=== PATIENT | female | born 1970 | race Caucasian/White ===

== ENCOUNTER 2019-02-15 00:37 | Emergency (ER) | payer OTHER ==
--- NOTE | 2019-02-15 00:53 | PHYS DOC ---
Past History Past Medical History: Hypothyroid Additional Past Medical Histor: insomnia, herniated disc at L5/S1 Past Surgical History: Hysterectomy Additional Past Surgical Histo: breast implants Adult General Chief Complaint Chief Complaint: abdominal pain HPI HPI Patient is a 48 year old female who presents with complaint of abdominal pain and vomiting. Patient states that her symptoms started approximately 4-5 hours prior to arrival. She states that her symptoms started out as discomfort in the right upper quadrant. This has progressed to severe sharp colicky pain which she currently rates as 10 out of 10. Has associated nausea. No diarrhea or fever. States that the pain radiates towards her back. Denies history of similar symptoms. Review of Systems Review of Systems Constitutional: Denies fever or chills [] Eyes: Denies change in visual acuity, redness, or eye pain [] HENT: Denies nasal congestion or sore throat [] Respiratory: Denies cough or shortness of breath [] Cardiovascular: Denies chest pain or edema[] GI: Abdominal pain, nausea, vomiting[] : Denies dysuria or hematuria [] Musculoskeletal: Denies back pain or joint pain [] Integument: Denies rash or skin lesions [] Neurologic: Denies headache, focal weakness or sensory changes [] All other systems were reviewed and found to be within normal limits, except as documented in this note. Current Medications Current Medications Current Medications Medications (Trade) Dose Ordered Sig/Margi Start Time Stop Time Status Last Admin Dose Admin Famotidine (Pepcid Vial) 20 mg 1X ONCE 02/15/19 01:00 02/15/19 01:01 UNV Fentanyl Citrate (Fentanyl 2ml Vial) 50 mcg PRN Q15MIN PRN 02/15/19 01:00 02/16/19 00:59 UNV Ondansetron HCl (Zofran) 4 mg 1X ONCE 02/15/19 01:00 02/15/19 01:01 UNV Sodium Chloride 1,000 ml @ 1,000 mls/hr Q1H 02/15/19 00:50 02/15/19 01:49 UNV Allergies Allergies Allergies Coded Allergies Type Severity Reaction Last Updated Verified naproxen Allergy Unknown 02/15/19 Yes povidone-iodine Allergy Unknown 02/15/19 Yes soap Allergy Unknown 02/15/19 Yes Physical Exam Physical Exam Constitutional: Alert, afebrile, appears in severe discomfort. [] HENT: Normocephalic, atraumatic, bilateral external ears normal, oropharynx moist, no oral exudates, nose normal. [] Eyes: PERRLA, EOMI, conjunctiva normal, no discharge. [] Neck: Normal range of motion, no tenderness, supple, no stridor. [] Cardiovascular:Heart rate regular rhythm, no murmur [] Lungs & Thorax: Bilateral breath sounds clear to auscultation [] Abdomen: Bowel sounds normal, soft, positive Lovell sign, no masses, no pulsatile masses. [] Skin: Warm, dry, no erythema, no rash. [] Back: No tenderness, no CVA tenderness. [] Extremities: No tenderness, no cyanosis, no clubbing, ROM intact, no edema. [] Neurologic: Alert and oriented X 3, normal motor function, normal sensory function, no focal deficits noted. [] Current Patient Data Vital Signs Temperature 97.3�F, pulse 76, blood pressure 115/76, respirations 22, pulse oximetry 100% on room air Lab Results CBC, CMP, lipase, and UA reviewed, notable lab values: White blood cell count 12.8, blood glucose 125, potassium 3.3 EKG EKG Interpreted by me: Heart rate 73, sinus rhythm, normal intervals, normal axis, no acute ST/T-wave abnormalities present[] Radiology/Procedures Radiology/Procedures CT of the abdomen and pelvis with IV contrast interpreted by Dr. Gallo, radiologist: Findings consistent with acute cholecystitis[] Course & Med Decision Making Course & Med Decision Making Pertinent Labs and Imaging studies reviewed. (See chart for details) Patient was started on IV fluids. Given a total of 200 �g of IV fentanyl, 4 mg of IV Zofran, and administered an additional 1 mg of IV Dilaudid. CT imaging confirms acute cholecystitis. [facility] does not have general surgery on-call. The patient will need transfer to a facility for general surgery consultation and expectant laparoscopic cholecystectomy. The patient thus will be transferred to [facility]. I spoke with Dr. Franco of general surgery who will agree to consult on patient. I also spoke with Dr. Leary who will accept patient for transfer. The patient will be transferred by ground EMS to [facility]. Spoke with patient regarding plan of care and in agreement at time of disposition. Dragon Disclaimer Dragon Disclaimer This electronic medical record was generated, in whole or in part, using a voice recognition dictation system. Departure Departure: Impression: Primary Impression: Acute cholecystitis Disposition: XFER SHT-TRM HOSP Condition: STABLE Referrals: RADAMES CENTENO MD (PCP) SAMIA WALTER MD Feb 15, 2019 00:53
[2019-02-15] MEDS ORDERED: ONDANSETRON PF 4 MG/2 ML VIAL. IV ONE (01:00)
[2019-02-15] MEDS ORDERED: FAMOTIDINE 20 MG/2 ML VIAL IVP ONE (01:00)
[2019-02-15] MEDS ORDERED: IV NORMAL SALINE 1,000ML 1,000 ML IV SCH (01:00)
[2019-02-15] MEDS ORDERED: IOHEXOL 300 MG/ML 75 ML VIAL. ONE (01:48)
[2019-02-15] MEDS ORDERED: HYDROmorphone PF 2 MG/ML VIAL ONE (03:09)
[2019-02-15 04:13] LABS: ALBUMIN/GLOBULIN RATIO 1.3 (1.0-1.7); CALCIUM 9.5 mg/dL (8.5-10.1); CREATININE 0.7 mg/dL (0.6-1.0); GFR 89.3; POTASSIUM 3.3 mmol/L (3.5-5.1); TOTAL BILIRUBIN 0.4 mg/dL (0.2-1.0); TOTAL PROTEIN 7.1 g/dL (6.4-8.2)
[2019-02-15 04:14] LABS: BASO # 0.1 x10^3/uL (0.0-0.2); BASO % 1 % (0-3); EOS # 0.1 x10^3/uL (0.0-0.7); EOS % 1 % (0-3); HEMATOCRIT 43.8 % (36.0-47.0); HEMOGLOBIN 14.6 g/dL (12.0-15.5); LYMPH # 1.6 x10^3/uL (1.0-4.8); LYMPH % 12 % (24-48); MEAN CORPUSCULAR HEMOGLOBIN 31 pg (25-35); MEAN CORPUSCULAR HGB CONC 33 g/dL (31-37); MEAN CORPUSCULAR VOLUME 94 fL (79-100); MONO # 0.9 x10^3/uL (0.0-1.1); MONO % 7 % (0-9); NEUT # 10.3 x10^3uL (1.8-7.7); NEUT % 80 % (31-73); PLATELET COUNT 230 x10^3/uL (140-400); RED BLOOD COUNT 4.64 x10^6/uL (3.50-5.40); RED CELL DISTRIBUTION WIDTH 12.3 % (11.5-14.5); WHITE BLOOD COUNT 12.8 x10^3/uL (4.0-11.0)
[2019-02-15] MEDS ORDERED: CONTRAST GIVEN MC PRN (04:30)
[2019-02-15] MEDS ORDERED: IOHEXOL 300 MG/ML 75 ML VIAL. IV ONE (04:30)
[2019-02-15 04:40] LABS: BACTERIA,URINE 0 /HPF (0-FEW); BILIRUBIN,URINE NEG (NEG); CLARITY,URINE CLEAR; COLOR,URINE YELLOW; GLUCOSE,URINE NEG (NEG); NITRITE,URINE NEG (NEG); RBC,URINE OCC /HPF (0-2); UROBILINOGEN,URINE 0.2 mg/dL (0.2 mg/dL); WBC,URINE OCC /HPF (0-4)
[2019-02-15 04:41] LABS: SQUAMOUS EPITHELIAL CELL,UR MANY /LPF
--- NOTE | 2019-02-15 05:10 | RAD ---
CT scan of the abdomen and pelvis with contrast 02/15/2019 CLINICAL HISTORY: Right upper quadrant abdominal pain. TECHNIQUE: After the intravenous administration of 75 cc of Omnipaque 300 only, contiguous, 5 mm axial sections were obtained through the abdomen and pelvis. One or more of the following individualized dose reduction techniques were utilized for this study: 1. Automated exposure control. 2. Adjustment of the mA and/or kV according to patient size. 3. Use of iterative reconstruction technique. FINDINGS: Images through the lung bases demonstrate minimal dependent subsegmental atelectasis bilaterally. The liver, spleen, pancreas, adrenal glands and kidneys are within normal limits. The abdominal aorta tapers normally. No free air is seen. There is no evidence of bowel obstruction. The appendix is not visualized. No inflammatory changes are seen surrounding the cecum. The gallbladder is distended. Multiple gallstones are seen within the gallbladder. A 1.7 cm gallstone is seen within the neck of the gallbladder. Mild gallbladder wall thickening is seen. A small amount of pericholecystic fluid is noted. These findings are consistent with acute cholecystitis. No intra or extrahepatic biliary dilatation is noted. Images through the pelvis demonstrate the urinary bladder distended with urine. Calcifications are seen within the pelvis consistent with phleboliths. No free fluid is seen. Degenerative changes are seen involving lower thoracic and throughout the lumbar spine and both hips. IMPRESSION: Findings consistent with acute cholecystitis. Electronically signed by: Derek Gallo MD (02/15/2019 5:07 AM) [facility]
--- NOTE | 2019-02-16 11:11 | EKG ---
[address] [address] Test Date: 2019-02-15 Test Time: 01:40:58 Pat Name: KRISTIE OLVERA Department: Room: Gender: F Environmental Health Physician: PATRICIA : 1970 Requested By: SAMIA WALTER Order Number: [id number] Reading MD: Measurements Intervals [place] Rate: 73 P: 59 CA: 184 QRS: 65 QRSD: 82 T: 56 QT: 370 QTc: 411 Interpretive Statements SINUS ARRHYTHMIA OTHERWISE NORMAL ECG RI6.01 No previous ECG available for comparison
== END 2019-02-15 04:32 | disposition short-term general hospital (02) ==
LOC: ER 00:37
DX: K81.0 Acute cholecystitis (principal); E03.9 Hypothyroidism, unspecified; Z90.710 Acquired absence of both cervix and uterus; Z88.8 Allergy status to other drugs, medicaments and biological substances; Z91.048 Other nonmedicinal substance allergy status
CPT/HCPCS: 36415; 74177; 80053; 81001; 83690; 85025; 99285; Q9967

== ENCOUNTER 2020-06-29 20:07 | Emergency (ER) | payer OTHER ==
[~2020-06-29] VITALS: Ht 167.6 cm; Wt 90.0 kg
--- NOTE | 2020-06-29 20:15 | PHYS DOC ---
Past History Past Medical History: Hypothyroid Additional Past Medical Histor: insomnia, herniated disc at L5/S1 Past Surgical History: Hysterectomy Additional Past Surgical Histo: breast implants General Adult EDM: Chief Complaint: NAUSEA/VOMITING/DIARRHEA HPI: HPI: ".. My has COVID..He's better.. I probably got it now..." " My tested + on .. I was negative...Now I got it.. I hurt all over, have fever and chills,.. I hurt all over.. vomiting and nauseated... Probably got a little dehydrated... I did get my flu shot this season.." Patient is a 50 year old female who presents with above hx and complaints of nausea, vomiting, diarrhea, malaise, arthralgia, myalgia, fever, chills, and f atigue. Patient states the nausea now prevents her from intake of food. Patient tested positive on Wednesday of this week for Covid. Patient reportedly was negative on her first Covid test. The patient did get a flu vaccination this season. No recent travel outside [facility]. No other specific contacts other than her . No history of bad food intake. No h istory of immunosuppression. Patient follow-up with Dr. Rosario Review of Systems: Review of Systems: Constitutional: History of fever or chills Eyes: Denies change in visual acuity HENT: History of nasal congestion or sore throat Respiratory: History of cough or shortness of breath Cardiovascular: Denies chest pain or edema GI: History of abdominal pain, nausea, vomiting, and diarrhea : Denies dysuria Musculoskeletal: Complains of generalized myalgia and arthralgia Integument: Denies rash Neurologic: Denies headache, focal weakness or sensory changes Endocrine: Denies polyuria or polydipsia Lymphatic: Denies swollen glands Psychiatric: Denies depression or anxiety Family History: Family History: tested positive for Covid on 06/25 Current Medications: Current Meds: See nursing for home meds Allergies: Allergies: Allergies Coded Allergies Type Severity Reaction Last Updated Verified naproxen Allergy Unknown 02/15/19 Yes povidone-iodine Allergy Unknown 02/15/19 Yes soap Allergy Unknown 02/15/19 Yes Physical Exam: PE: Constitutional: Moderate acute distress, ill in appearance. [] HENT: Normocephalic, atraumatic, bilateral external ears normal, oropharynx dry,, injected pharynx, no oral exudates, nose swollen turbinates clear rhinorrhea. Eyes: PERRLA, EOMI, conjunctiva normal, no discharge. [] Neck: Normal range of motion, no tenderness, supple, no stridor. [] Cardiovascular: Tachycardia heart rate rhythm, no murmur [] Lungs & Thorax: Bilateral breath sounds equal at apex with scattered wheezes on auscultation [] Abdomen: Bowel sounds hyperactive, soft, no tenderness, no masses, no pulsatile masses. Old hysterectomy and gallbladder scars Skin: Warm, dry, no erythema, no rash. Poor turgor Back: No tenderness, no CVA tenderness. [] Extremities: No tenderness, no cyanosis, no clubbing, ROM intact, no edema. No cording appreciated. Neurologic: Alert and oriented X 3, moves all extremities on request, does have distal sensory, no focal deficits noted. [] Psychologic: Affect anxious, judgement normal, mood normal. [] EKG: EKG: My interpretation of EKG shows a sinus rhythm at 92 bpm. No acute morphology. Radiology/Procedures: Radiology/Procedures: [][place] [address] IMAGING REPORT Signed PATIENT: KRISTIE OLVERA ACCOUNT: [id number] : 1970 LOCATION: ER AGE: 50 SEX: F EXAM STATUS: REG ER ORD. PHYSICIAN: DIPTI QUINTEROS MD REASON: dyspnea PROCEDURE: PORTABLE CHEST 1V AP chest. HISTORY: Dyspnea AP view was taken of the chest. There are hazy bilateral infiltrates suggesting atypical or viral pneumonia. Heart is normal in size. There is no pleural effusion. IMPRESSION: 1. Bilateral hazy infiltrates. Electronically signed by: Rex Funez MD (06/29/2020 10:00 PM) [facility] DICTATED AND SIGNED BY: REX FUNEZ MD DATE: 06/29/20 2200 CC: RADAMES ROSARIO MD; DIPTI QUINTEROS MD ~MTH0 0 Heart Score: HEART Score for Chest Pain: HEART Score for Chest Pain Response (Comments) Value History Slighlty/Non-Suspicious 0 ECG Normal 0 Age >45 - < 65 1 Risk Factors 1 or 2 Risk Factors 1 Troponin < Normal Limit 0 Total 2 Risk Factors: Risk Factors: DM, Current or recent (<one month) smoker, HTN, HLP, family history of CAD, obesity. Risk Scores: Score 0 - 3: 2.5% MACE over next 6 weeks - Discharge Home Score 4 - 6: 20.3% MACE over next 6 weeks - Admit for Clinical Observation Score 7 - 10: 72.7% MACE over next 6 weeks - Early Invasive Strategies Course & Med Decision Making: Course & Med Decision Making Pertinent Labs and Imaging studies reviewed. (See chart for details) Patient to self isolate the next 10 days. Pt. to Wear a mask covering her nose and mouth at all times when she is outside her home. Patient use MDI 2 puffs 4 times a day. Patient take Tylenol and ibuprofen as needed for discomfort. May take Zofran 8 mg up to 4 times a day for nausea and vomiting. Patient take Zithromax 250 a day for next 5 days. Eliquis 2.5 twice a day. The patient push fluids. Patient consider self as Covid positive due to her exposure and symptoms. Return if any concerns. Follow-up primary care. Pt. ambulatory with out problems at discharge. Reports marked improvement of symptoms. Impression: 1. Viral Syndrome-history of direct exposure COVID- 2. Nausea vomiting diarrhea 3. Dehydration 4. Mild elevation D-dimer 0.81 5. Hypomagnesium 1.5 6. Elevated AST and ALT 80/78 7. Elevated CRP 48.7 8. Bilateral Atypical Pneumonia [] Dragon Disclaimer: Dragon Disclaimer: This electronic medical record was generated, in whole or in part, using a voice recognition dictation system. Departure Departure: Referrals: RADAMES ROSARIO MD (PCP) Scripts Apixaban (ELIQUIS) 2.5 Mg Tablet 2.5 MG PO BID for COVID, D-dimer for 10 Days, #20 TAB Prov: DIPTI QUINTEROS MD 06/29/20 Ondansetron Hcl (ZOFRAN) 4 Mg Tablet 8 MG PO QIDPRN for nuasea, #30 TAB Prov: DIPTI QUINTEROS MD 11/28/20 Azithromycin (ZITHROMAX) 250 Mg Tablet 250 MG PO DAILY for ANTI-BIOTIC for 5 Days, #5 TAB 0 Refills Prov: DIPTI QUINTEROS MD 06/29/20 Alexis Disclaimer This chart was dictated in whole or in part using Voice Recognition software in a busy, high-work load, and often noisy Emergency Department environment. It may contain unintended and wholly unrecognized errors or omissions. Dragon Disclaimer This chart was dictated in whole or in part using Voice Recognition software in a busy, high-work load, and often noisy Emergency Department environment. It may contain unintended and wholly unrecognized errors or omissions. Dragon Disclaimer This chart was dictated in whole or in part using Voice Recognition software in a busy, high-work load, and often noisy Emergency Department environment. It may contain unintended and wholly unrecognized errors or omissions. Dragon Disclaimer This chart was dictated in whole or in part using Voice Recognition software in a busy, high-work load, and often noisy Emergency Department environment. It may contain unintended and wholly unrecognized errors or omissions. Dragon Disclaimer This chart was dictated in whole or in part using Voice Recognition software in a busy, high-work load, and often noisy Emergency Department environment. It may contain unintended and wholly unrecognized errors or omissions. DIPTI QUINTEROS MD Jun 29, 2020 20:15
[2020-06-29] MEDS ORDERED: IV RINGERS SOLUTION,LACTATED 1,000 ML IV SCH (20:30)
[2020-06-29] MEDS ORDERED: ALBUTEROL SULFATE 8GM INHALER. INH ONE ×2 (20:30→23:15)
[2020-06-29 20:53] LABS: BASO % 0 % (0-3); EOS % 0 % (0-3); HEMATOCRIT 47.3 % (36.0-47.0); LYMPH # 0.6 x10^3/uL (1.0-4.8); LYMPH % 15 % (24-48); MEAN CORPUSCULAR HEMOGLOBIN 31 pg (25-35); MEAN CORPUSCULAR HGB CONC 34 g/dL (31-37); MEAN CORPUSCULAR VOLUME 92 fL (79-100); MONO # 0.4 x10^3/uL (0.0-1.1); MONO % 9 % (0-9); NEUT # 2.8 x10^3uL (1.8-7.7); NEUT % 75 % (31-73); PLATELET COUNT 140 x10^3/uL (140-400); RED BLOOD COUNT 5.14 x10^6/uL (3.50-5.40); RED CELL DISTRIBUTION WIDTH 12.1 % (11.5-14.5); WHITE BLOOD COUNT 3.7 x10^3/uL (4.0-11.0)
[2020-06-29] MEDS ORDERED: ONDANSETRON PF 4 MG/2 ML VIAL. IVP ONE ×2 (21:00→22:00)
[2020-06-29] MEDS ORDERED: oxyCODONE/APAP 5/325 1 TAB TABLET PO ONE (21:00)
[2020-06-29 21:16] LABS: ALBUMIN 3.4 g/dL (3.4-5.0); CALCIUM 8.9 mg/dL (8.5-10.1); CREATININE 0.9 mg/dL (0.6-1.0); DIRECT BILIRUBIN 0.1 mg/dL (0.0-0.2); GFR 66.3; MAGNESIUM 1.5 mg/dL (1.8-2.4); POTASSIUM 3.9 mmol/L (3.5-5.1); TOTAL BILIRUBIN 0.2 mg/dL (0.2-1.0); TOTAL PROTEIN 7.6 g/dL (6.4-8.2)
[2020-06-29 21:47] LABS: INFLUENZA A PATIENT NEGATIVE (NEGATIVE); INFLUENZA B PATIENT NEGATIVE (NEGATIVE)
--- NOTE | 2020-06-29 22:04 | RAD ---
AP chest. HISTORY: Dyspnea AP view was taken of the chest. There are hazy bilateral infiltrates suggesting atypical or viral pneumonia. Heart is normal in size. There is no pleural effusion. IMPRESSION: 1. Bilateral hazy infiltrates. Electronically signed by: Rex Funez MD (06/29/2020 10:00 PM) [facility]
[2020-06-29] MEDS ORDERED: IV RINGERS SOLUTION,LACTATED 1,000 ML IV ONE ×2 (23:00→23:15)
[2020-06-29] MEDS ORDERED: AZIT250T PO (23:13)
[2020-06-29] MEDS ORDERED: ONDA4TAB7 PO (23:13)
[2020-06-29] MEDS ORDERED: AZITHROMYCIN 250 MG TABLET. PO ONE (23:15)
[2020-06-29] MEDS ORDERED: MAGNESIUM SULFATE 2GM 50 ML IV ONE (23:15)
[2020-06-29] MEDS ORDERED: APIXABAN 2.5 MG TABLET PO ONE (23:15)
[2020-06-29] MEDS ORDERED: APIX2.5T PO (23:25)
[2020-06-29 23:27] LABS: BILIRUBIN,URINE NEG (NEG); CLARITY,URINE CLEAR; COLOR,URINE YELLOW; GLUCOSE,URINE NEG (NEG)
[2020-06-29 23:28] LABS: BACTERIA,URINE FEW /HPF (0-FEW); NITRITE,URINE NEG (NEG); RBC,URINE 0 /HPF (0-2); SQUAMOUS EPITHELIAL CELL,UR FEW /LPF; UROBILINOGEN,URINE 0.2 mg/dL (0.2 mg/dL); WBC,URINE 0 /HPF (0-4)
[2020-06-30 02:17] VITALS: BP 107/58
--- NOTE | 2020-06-30 05:31 | EKG ---
[address] [address] Test Date: 2020-06-29 Test Time: 20:57:06 Pat Name: KRISTIE OLVERA Department: Room: Gender: F Car Audio Installer: : 1970 Requested By: DIPTI QUINTEROS Order Number: [id number] Reading MD: Petr Thompson Measurements Intervals [place] Rate: 92 P: 48 CT: 170 QRS: 46 QRSD: 74 T: 49 QT: 328 QTc: 410 Interpretive Statements SINUS RHYTHM NORMAL ECG Electronically Signed On 07-02-2020 10:51:12 RN CARDIOVASCULAR ICU by Petr Thompson
[2020-07-01] MEDS ORDERED: PRAS25CA PO (21:05)
[2020-07-01] MEDS ORDERED: iodoral PO (21:05)
[2020-07-01] MEDS ORDERED: ZOLP10TA PO (21:05)
[2020-07-01] MEDS ORDERED: OMEP20TA63 PO (21:05)
[2020-07-01] MEDS ORDERED: LORA10TA68 PO (21:05)
[2020-07-01] MEDS ORDERED: NATURE THROID PO (21:05)
[2020-07-01] MEDS ORDERED: FAMC250T3 PO (21:05)
[2020-07-01] MEDS ORDERED: CHOL500050 PO (21:05)
[2020-07-01] MEDS ORDERED: LACT1CAP21 PO (21:05)
[2020-07-01] MEDS ORDERED: GABA100C81 PO (21:05)
== END 2020-06-30 02:25 | disposition home or self-care (01) ==
LOC: ER 20:07
DX: J18.9 Pneumonia, unspecified organism (principal); B34.9 Viral infection, unspecified; E86.0 Dehydration; R79.1 Abnormal coagulation profile; E83.42 Hypomagnesemia; R79.89 Other specified abnormal findings of blood chemistry; R79.82 Elevated C-reactive protein (CRP); E03.9 Hypothyroidism, unspecified; Z88.8 Allergy status to other drugs, medicaments and biological substances
CPT/HCPCS: 36415; 71045; 80048; 80076; 81001; 82550; 83605; 83690; 83735; 84443; 84484; 85025; 85379; 85610; 85730; 86140; 87040; 87070; 87804; 87880; 93005; 96361; 96365; 96366; 96375; 96376; 99285; J0456; J2405; J3475; J7120; J7613

== ENCOUNTER 2020-07-01 16:32 | Inpatient (IN) | payer OTHER ==
[~2020-07-01] VITALS: Ht 170.2 cm; Wt 90.9 kg
[~2020-07-01 16:32] MED LIST: APIX2.5T PO; AZIT250T PO; ONDA4TAB7 PO
[2020-07-01] MEDS ORDERED: IV NORMAL SALINE 1,000ML 1,000 ML IV ONE (17:00)
[2020-07-01] MEDS ORDERED: ONDANSETRON PF 4 MG/2 ML VIAL. ONE (17:04)
[2020-07-01] MEDS ORDERED: ONDANSETRON PF 4 MG/2 ML VIAL. IVP ONE ×2 (17:15→18:30)
--- NOTE | 2020-07-01 17:16 | EKG ---
[address] [address] Test Date: 2020-07-01 Test Time: 17:01:34 Pat Name: KRISTIE OLVERA Department: Room: Gender: F Acidizer Water Well: CURTIS : 1970 Requested By: EMMY SALDAÑA Order Number: [id number] Reading MD: Petr Thompson Measurements Intervals [place] Rate: 78 P: 38 NM: 164 QRS: 47 QRSD: 78 T: 56 QT: 368 QTc: 423 Interpretive Statements SINUS RHYTHM NORMAL ECG Electronically Signed On 07-02-2020 10:29:39 WHEEL ALIGNMENT MECHANIC by Petr Thompson
[2020-07-01 17:45] LABS: BASO % 0 % (0-3); EOS % 0 % (0-3); HEMATOCRIT 43.5 % (36.0-47.0); HEMOGLOBIN 14.4 g/dL (12.0-15.5); LYMPH # 0.7 x10^3/uL (1.0-4.8); LYMPH % 17 % (24-48); MEAN CORPUSCULAR HEMOGLOBIN 31 pg (25-35); MEAN CORPUSCULAR HGB CONC 33 g/dL (31-37); MEAN CORPUSCULAR VOLUME 92 fL (79-100); MONO # 0.5 x10^3/uL (0.0-1.1); MONO % 13 % (0-9); NEUT # 2.8 x10^3uL (1.8-7.7); NEUT % 70 % (31-73); PLATELET COUNT 160 x10^3/uL (140-400); RED BLOOD COUNT 4.72 x10^6/uL (3.50-5.40); RED CELL DISTRIBUTION WIDTH 12.5 % (11.5-14.5)
--- NOTE | 2020-07-01 17:48 | RAD ---
EXAMINATION: CHEST AP ONLY CLINICAL HISTORY: Shortness of breath, COVID TECHNIQUE: CHEST AP ONLY COMPARISON: 06/21/2020 FINDINGS/ IMPRESSION: Similar to slightly more conspicuous peripherally predominant ill-defined opacities in the bilateral lungs, compatible with viral pneumonia. Remainder of the study otherwise unchanged. Electronically signed by: Jarrett Amos DO (07/01/2020 5:45 PM) [id number]
[2020-07-01 17:53] LABS: CALCIUM 8.6 mg/dL (8.5-10.1); CREATININE 0.9 mg/dL (0.6-1.0); GFR 66.3; POTASSIUM 3.6 mmol/L (3.5-5.1)
--- NOTE | 2020-07-01 17:58 | PHYS DOC ---
Past History Past Medical History: Asthma, Hypothyroid Additional Past Medical Histor: insomnia, herniated disc at L5/S1 Past Surgical History: Cholecystectomy, Hysterectomy Additional Past Surgical Histo: breast implants Alcohol Use: None Adult General Chief Complaint Chief Complaint: NAUSEA/VOMITING/DIARRHEA HPI HPI Patient is a 50yo female presenting for COVID symptoms. She was recently diagnosed with COVID <7 days ago and seen at our ED 48 hours ago. She was provided supportive care and at that time safe for discharge. Nonetheless, patient's condition declined and she was knowledgeable on return precautions prompting her to discuss case with PCP given ongoing diarrhea and symptomatic fatigue and lethargy with SHOB. She has been febrile with last temp 100.9 measured yesterday evening. She was ultimately referred to our ER for evaluation Review of Systems Review of Systems Constitutional: Admits fever and chills Eyes: Denies change in visual acuity, redness, or eye pain [] HENT: Admits nasal congestion Respiratory: Admits dry cough and inc shortness of breath Cardiovascular: No additional information not addressed in HPI [] GI: Denies abdominal pain, vomiting, bloody stools. Admits nausea and diarrhea [] : Denies dysuria or hematuria [] Musculoskeletal: Denies back pain or joint pain. Admits body aches [] Integument: Denies rash or skin lesions [] Neurologic: Denies headache, focal weakness or sensory changes [] Endocrine: Denies polyuria or polydipsia [] All other systems were reviewed and found to be within normal limits, except as documented in this note. Current Medications Current Medications Current Medications Medications (Trade) Dose Ordered Sig/Margi Start Time Stop Time Status Last Admin Dose Admin Ondansetron HCl (Zofran) 4 mg 1X ONCE 07/01/20 17:15 07/01/20 17:16 DC Sodium Chloride 1,000 ml @ 1,000 mls/hr 1X ONCE 07/01/20 17:00 07/01/20 17:59 Allergies Allergies Allergies Coded Allergies Type Severity Reaction Last Updated Verified naproxen Allergy Unknown 07/01/20 Yes povidone-iodine Allergy Unknown 07/01/20 Yes soap Allergy Unknown 07/01/20 Yes Physical Exam Physical Exam Constitutional: Well developed, well nourished, no acute distress, non-toxic appearance but appears uncomfortable and ill. [] HENT: Normocephalic, atraumatic, bilateral external ears normal, oropharynx dry, no oral exudates, nose normal. [] Eyes: PERRLA, EOMI, conjunctiva normal, no discharge. [] Neck: Normal range of motion, no tenderness, supple, no stridor. [] Cardiovascular:Heart rate regular rhythm, no murmur [] Lungs & Thorax: Bilateral breath sounds clear to auscultation [] Abdomen: Bowel sounds normal, soft, no tenderness, no masses, no pulsatile masses. [] Skin: Warm, moist, no erythema, no rash. [] Back: No tenderness, no CVA tenderness. [] Extremities: No tenderness, no cyanosis, no clubbing, ROM intact, no edema. [] Neurologic: Alert and oriented X 3, normal motor function, normal sensory function, no focal deficits noted. [] Psychologic: Affect normal, judgement normal, depressed mood. [] Current Patient Data Vital Signs Vital Signs Date Time Temp Pulse Resp B/P (MAP) Pulse Ox O2 Delivery O2 Flow Rate FiO2 07/01/20 16:45 98.7 82 26 133/76 (95) 97 Room Air Lab Results Laboratory Tests Test 07/01/20 17:10 White Blood Count 4.0 x10^3/uL (4.0-11.0) Red Blood Count 4.72 x10^6/uL (3.50-5.40) Hemoglobin 14.4 g/dL (12.0-15.5) Hematocrit 43.5 % (36.0-47.0) Mean Corpuscular Volume 92 fL (79-100) Mean Corpuscular Hemoglobin 31 pg (25-35) Mean Corpuscular Hemoglobin Concent 33 g/dL (31-37) Red Cell Distribution Width 12.5 % (11.5-14.5) Platelet Count 160 x10^3/uL (140-400) Neutrophils (%) (Auto) 70 % (31-73) Lymphocytes (%) (Auto) 17 % (24-48) L Monocytes (%) (Auto) 13 % (0-9) H Eosinophils (%) (Auto) 0 % (0-3) Basophils (%) (Auto) 0 % (0-3) Neutrophils # (Auto) 2.8 x10^3uL (1.8-7.7) Lymphocytes # (Auto) 0.7 x10^3/uL (1.0-4.8) L Monocytes # (Auto) 0.5 x10^3/uL (0.0-1.1) Eosinophils # (Auto) 0.0 x10^3/uL (0.0-0.7) Basophils # (Auto) 0.0 x10^3/uL (0.0-0.2) Sodium Level 137 mmol/L (136-145) Potassium Level 3.6 mmol/L (3.5-5.1) Chloride Level 103 mmol/L (98-107) Carbon Dioxide Level 24 mmol/L (21-32) Anion Gap 10 (6-14) Blood Urea Nitrogen 5 mg/dL (7-20) L Creatinine 0.9 mg/dL (0.6-1.0) Estimated GFR (Cockcroft-Gault) 66.3 BUN/Creatinine Ratio 6 (6-20) Glucose Level 102 mg/dL (70-99) H Calcium Level 8.6 mg/dL (8.5-10.1) Total Bilirubin Pending Aspartate Amino Transferase (AST) Pending Alanine Aminotransferase (ALT) Pending Alkaline Phosphatase Pending Total Protein Pending Albumin Pending Albumin/Globulin Ratio Pending EKG EKG See upload, NSR without ischemic findings, no STEMI Radiology/Procedures Radiology/Procedures EXAMINATION: CHEST AP ONLY CLINICAL HISTORY: Shortness of breath, COVID TECHNIQUE: CHEST AP ONLY COMPARISON: 06/21/2020 FINDINGS/ IMPRESSION: Similar to slightly more conspicuous peripherally predominant ill-defined opacities in the bilateral lungs, compatible with viral pneumonia. Remainder of the study otherwise unchanged. Electronically signed by: Jarrett Amos DO (07/01/2020 5:45 PM) [id number] Heart Score HEART Score for Chest Pain: HEART Score for Chest Pain Response (Comments) Value History Slighlty/Non-Suspicious 0 ECG Normal 0 Age >45 - < 65 1 Risk Factors 1 or 2 Risk Factors 1 Troponin < Normal Limit 0 Total 2 Risk Factors: Risk Factors: DM, Current or recent (<one month) smoker, HTN, HLP, family history of CAD, obesity. Risk Scores: Risk Factors: DM, Current or recent (<one month) smoker, HTN, HLP, family history of CAD, obesity. Course & Med Decision Making Course & Med Decision Making Pertinent Labs and Imaging studies reviewed. (See chart for details) Patient symptomatic from COVID-19. Dehydrated and more SHOB than usual with concerning CXR findings, she is high risk for decompensation if discharged home as she has failed to respond to supportive care at home I discussed case with Dr. Stafford who agreed for admission under his care Patient updated on this decision and amenable, all questions and concerns addressed prior to ED transport to [place] in stable condition Dragon Disclaimer Dragon Disclaimer This electronic medical record was generated, in whole or in part, using a voice recognition dictation system. Departure Departure: Impression: Primary Impression: COVID-19 Additional Impression: Dehydration Disposition: ADMITTED INPT THIS HOSP Admitting Physician: Ahsan Satfford Referrals: RADAMES CENTENO MD (PCP) Problem Qualifiers EMMY SALDAÑA DO Jul 01, 2020 17:58
[2020-07-01] MEDS ORDERED: DEXAMETHASONE SOD PHOS 4 MG/ML VIAL. IVP ONE (18:00)
[2020-07-01 18:03] LABS: ALBUMIN 3.1 g/dL (3.4-5.0); ALBUMIN/GLOBULIN RATIO 0.8 (1.0-1.7); TOTAL BILIRUBIN 0.3 mg/dL (0.2-1.0); TOTAL PROTEIN 7.1 g/dL (6.4-8.2)
[2020-07-01] MEDS ORDERED: ENOXAPARIN 40 MG/0.4 ML SYRINGE. SQ ONE (18:15)
[2020-07-01] MEDS ORDERED: ACETAMINOPHEN 325 MG TABLET PO PRN (18:15)
--- NOTE | 2020-07-01 20:45 | NUR ---
Admission Note: Pt transported from ED to ICU room 6, pt moved from cart to bed with two person assist, VSS, no c/o n/v at this time, pt c/o SOA however oxygen is 96% on RA, admission documentation completed, pt oriented to room/surroundings/and unit routines.
[2020-07-01] MEDS ORDERED: FAMC250T3 PO (21:05)
[2020-07-01] MEDS ORDERED: LACT1CAP21 PO (21:05)
[2020-07-01] MEDS ORDERED: LORA10TA68 PO (21:05)
[2020-07-01] MEDS ORDERED: OMEP20TA63 PO (21:05)
[2020-07-01] MEDS ORDERED: CHOL500050 PO (21:05)
[2020-07-01] MEDS ORDERED: PRAS25CA PO (21:05)
[2020-07-01] MEDS ORDERED: iodoral PO (21:05)
[2020-07-01] MEDS ORDERED: GABA100C81 PO (21:05)
[2020-07-01] MEDS ORDERED: NATURE THROID PO (21:05)
[2020-07-01] MEDS ORDERED: ZOLP10TA PO (21:05)
[2020-07-01] MEDS: IV NORMAL SALINE 1,000ML 1,000 ML IV SCH (21:32)
[2020-07-01 21:57] VITALS: BP 125/81
[2020-07-01 22:00] VITALS: BP 126/76
[2020-07-01 23:10] VITALS: BP 126/72
[2020-07-02] MEDS: ONDANSETRON PF 4 MG/2 ML VIAL. IVP PRN ×4 (00:50→22:27)
[2020-07-02] MEDS: HYDROcodone/CHLORPHEN POLIS 5 ML SUS.ER.12H PO PRN ×2 (00:51→13:39)
[2020-07-02] MEDS: MORPHINE SULFATE 4 MG/ML DISP.SYRIN. IV PRN ×2 (00:51→22:40)
[2020-07-02] MEDS: IPRATROPIUM/ALBUTEROL 20/100mcg/INH INHALER. INH PRN ×3 (00:55→20:49)
[2020-07-02 05:06] VITALS: BP 112/65
--- NOTE | 2020-07-02 05:57 | NUR ---
Shift Note: Pt a/o x4, BP/HR/RR stable, O2 is lower on RA this am (87% RA), put pt on oxygen at 2L NC, Temp slightly elevated at 99.0 this am, pt voiding clear yellow urine, pt given zofran for nausea during night, morphine for pain, and tussionex for cough (no further complaints), lovenox to be continued today.
[2020-07-02] MEDS: ZINC SULFATE 220 MG CAPSULE. PO SCH (08:11)
[2020-07-02] MEDS: IV NORMAL SALINE 1,000ML 1,000 ML IV SCH (08:14)
--- NOTE | 2020-07-02 11:06 | HP ---
ADMIT DATE: 07/02/2020 ATTENDING PHYSICIAN: Dr. Roa. CHIEF COMPLAINT: Pleuritic chest pain and weakness. HISTORY OF PRESENT ILLNESS: The patient is a 50-year-old female who has been sick for the last 7 days. Her came down with COVID-19 pneumonia. He was treated at home. She tried to quarantine him. For the last 7 days, she has had cough, congestion, sharp central pleuritic type chest pain, aggravated by the cough. She has had some nausea and vomiting. She was very weak. She was initially seen in the ED on Wednesday given fluids and sent home. She came back on Wednesday. She was admitted to our inpatient service for further treatment and evaluation. She has been febrile up to 100.9 degrees Fahrenheit yesterday. Her chest x-ray showed a patchy infiltrate in the periphery, but no overt decompensation or severe respiratory distress. Oxygen saturation are adequate on minimal 2 liters of nasal cannula. PAST MEDICAL HISTORY: Significant for asthma and hypothyroidism. She has a herniated disk at L5-S1, previous cholecystectomy, hysterectomy, and bilateral breast implants. ALLERGIES: SHE HAS ALLERGIES TO NAPROSYN, IODINE AND SOME CERTAIN SOAPS, EXACT REACTION IS UNCLEAR. MEDICATIONS: Prior to coming in include vitamin D3, Neurontin, lactobacillus, loratadine, Prilosec, Zolpidem and natural thyroid. FAMILY HISTORY: Significant for father of complications of F[employer] lymphoma due to non-Hodgkin's lymphoma. Mom is alive and fairly healthy. She is . She has 2 grown sons. They recently moved here from [place]. She grew up and went to school at [employer]. Her is in the army. REVIEW OF SYSTEMS: Significant for the illness this past week some vomiting, fevers, nausea, pleuritic type chest pain, cough, dry and nonproductive. She is a nonsmoker and nondrinker. All other systems were reviewed and determined to be negative. PHYSICAL EXAMINATION: GENERAL: When I saw her, this is a pleasant, middle-aged female. INITIAL VITAL SIGNS: Showed a blood pressure of 125/81, temperature 99.0 degrees Fahrenheit, oxygen saturation 92% on room air, blood pressure was 125/81 mmHg. HEENT: Head is without trauma. Pupils are reactive. Sclerae nonicteric. Oropharynx is clear. NECK: Supple, no bruits identified. LUNGS: Otherwise clear with minimal rhonchi in the upper airways. CARDIOVASCULAR: Showed distant heart tones. No gallops. ABDOMEN: Soft, scaphoid, nontender, no organomegaly. Bowel sounds are hypoactive. EXTREMITIES: Show no cyanosis or edema. NEUROLOGIC: Focally intact. SKIN: Warm and dry. PERTINENT LABORATORY AND X-RAY STUDIES: A chest x-ray done yesterday in the ED showed conspicuous perihilar ill-defined opacities compatible with viral pneumonia. No effusions identified. Hemoglobin is 14.4 g/dL, white count 4,000. Electrolytes within normal range. Cardiac enzymes negative. Transaminases normal. Nonfasting blood sugar 102 mg/dL. ASSESSMENT: 1. A 50-year-old female with presumed to COVID-19 pneumonia. 2. Dehydration. 3. Pleuritic type chest pain. 4. History of hyperlipidemia. 5. Generalized fatigue. PLAN: 1. Admit to the inpatient unit. 2. IV hydration. 3. Pain and nausea control. 4. Empiric Lovenox. 5. Zinc. 6. In addition to the Decadron given in the ED. I will opt to treat her with higher doses of steroids for her pleuritic type chest pain. 7. She has not had a positive swab yet. We will do a rapid coronavirus swab at this time. In anticipation of symptoms get worse, she may be a candidate for remdesivir during this hospitalization. APRYL ROA MD DR: DEJA/ameena JOB#: [id number] / [id number] RADAMES Castillo MD
[2020-07-02 12:56] VITALS: BP 130/71
[2020-07-02] MEDS: methylPREDNISolone SOD SUCC PF 125 MG/2 ML VIAL. IV SCH ×2 (14:29→22:27)
[2020-07-02 15:05] VITALS: BP 118/63
[2020-07-02] MEDS: AA 3%/ELECTROLYTE-TPN SOLN/GLY 1,000 ML IV SCH (18:27)
--- NOTE | 2020-07-02 19:07 | NUR ---
Patient remained alert and oriented x3 with complaints of weakness and fatigue. Procured an order for procalamine from Dr. Stafford in order to give patient temporary nutrition due to status. Not tolerating food and "everything goes in and straight out." updated and patient thankful.
[2020-07-02 19:45] VITALS: BP 136/75
[2020-07-02] MEDS ORDERED: ENOXAPARIN 30 MG/0.3 ML SYRINGE. SQ SCH (21:00)
[2020-07-02 23:00] VITALS: BP 124/72
[2020-07-03 01:10] VITALS: BP 122/72
[2020-07-03] MEDS: AA 3%/ELECTROLYTE-TPN SOLN/GLY 1,000 ML IV SCH ×2 (03:46→13:33)
[2020-07-03] MEDS: methylPREDNISolone SOD SUCC PF 125 MG/2 ML VIAL. IV SCH ×3 (05:38→21:56)
[2020-07-03 05:50] VITALS: BP 114/69
--- NOTE | 2020-07-03 06:10 | NUR ---
Pt awake in bed messaging with at change of shift. Pt is A&Ox4, pleasant and cooperative. Pt stated that she feels better since starting the Procal for temporary nutrition. Pt was able to tolerate some Jello throughout the night. Pt without BM or vomiting this shift. Pt slept off and on during night. Pt normally takes Ambien but not reordered due to N/V, but since improved maybe we can restart home meds later today. Pt did need one dose for PRN pain medications during shift. Pt anxiously awaiting Covid test results, pt convinced that she has Covid. Pt without fevers during shift.
[2020-07-03] MEDS: ONDANSETRON PF 4 MG/2 ML VIAL. IVP PRN (08:15)
[2020-07-03] MEDS: ZINC SULFATE 220 MG CAPSULE. PO SCH (09:00)
[2020-07-03 10:59] VITALS: BP 125/72
[2020-07-03] MEDS: MORPHINE SULFATE 4 MG/ML DISP.SYRIN. IV PRN ×2 (13:32→17:06)
[2020-07-03] MEDS ORDERED: AZITHROMYCIN 500 MG in IV NORMAL SALINE 250ML 250 ML IV ONE (13:45)
[2020-07-03 15:07] VITALS: BP 123/73
[2020-07-03 16:47] LABS: HEMATOCRIT 42.1 % (36.0-47.0); HEMOGLOBIN 13.8 g/dL (12.0-15.5); RED BLOOD COUNT 4.55 x10^6/uL (3.50-5.40); RED CELL DISTRIBUTION WIDTH 12.2 % (11.5-14.5); WHITE BLOOD COUNT 4.3 x10^3/uL (4.0-11.0)
[2020-07-03 16:55] LABS: CALCIUM 8.3 mg/dL (8.5-10.1); CREATININE 0.9 mg/dL (0.6-1.0); GFR 66.3; POTASSIUM 3.6 mmol/L (3.5-5.1)
[2020-07-03 17:01] LABS: ALBUMIN 2.8 g/dL (3.4-5.0); ALBUMIN/GLOBULIN RATIO 0.7 (1.0-1.7); TOTAL BILIRUBIN 0.2 mg/dL (0.2-1.0); TOTAL PROTEIN 6.6 g/dL (6.4-8.2)
--- NOTE | 2020-07-03 18:38 | NUR ---
Pt. remained calm and cooperative throughout the duration of the shift. Morphine seemed to significantly improve morale and make the patient feel better overall. updated!
[2020-07-03 19:48] VITALS: BP 133/66
[2020-07-03] MEDS: ZOLPIDEM 5 MG TABLET. PO SCH (21:56)
[2020-07-03] MEDS: ENOXAPARIN 40 MG/0.4 ML SYRINGE. SQ SCH (21:56)
[2020-07-03 22:20] VITALS: BP 120/74
[2020-07-04] MEDS: AA 3%/ELECTROLYTE-TPN SOLN/GLY 1,000 ML IV SCH ×3 (01:04→20:00)
[2020-07-04 01:10] VITALS: BP 114/62
[2020-07-04] MEDS: MORPHINE SULFATE 4 MG/ML DISP.SYRIN. IV PRN ×2 (05:27→12:38)
[2020-07-04] MEDS: methylPREDNISolone SOD SUCC PF 125 MG/2 ML VIAL. IV SCH ×3 (05:27→21:16)
[2020-07-04 05:35] VITALS: BP 113/64
--- NOTE | 2020-07-04 06:05 | NUR ---
Pt awake in bed at change of shift watching TV. Pt's dropped off some toiletry type belongings so pt was able to do a bed bath independently. Pt is A&Ox4, pleasant and cooperative. Pt continues to feel better since starting the Procal. Pt was able to tolerate rice night before bed along with Jello. Pt without BM, nausea or vomiting this shift and no fever. Pt slept much better tonight after restarting her Ambien. Pt did need one dose of PRN Morphine this AM for c/o abd pain.
--- NOTE | 2020-07-04 08:11 | PN ---
DATE: 07/03/2020 SUBJECTIVE: The patient is resting, slightly propped up in bed, continued to complain of cough with chest pain, generalized weakness and poor appetite. She is unable to eat or drink. PHYSICAL EXAMINATION: GENERAL: When I examined her, she looked pale, but no jaundice or cyanosis. No lymphadenopathy, no thyromegaly. No jugular venous distention. No lower limb edema. VITAL SIGNS: Her heart rate was 59, blood pressure was 125/72, temperature was 97.4, respiratory rate was 14 and oxygen saturation was 93% on room air. HEAD, EYES, EARS, NOSE AND THROAT: Showed normocephalic, atraumatic. NECK: Supple. HEART: Normal first and second heart sounds. No gallop or murmur. CHEST: Shows central trachea, equal bilateral expansion, air entry expands with crepitation posteriorly bilaterally. I could not appreciate any rhonchi. ABDOMEN: Slightly distended, soft, nontender. NEUROLOGIC: She was awake, alert, responding appropriately. All cranial nerves intact. She moves extremities without difficulty. She moves extremities spontaneously. Her intake was 1320, no output was recorded. LABORATORY DATA: This morning, her most recent lab work showed a white cell count 4000, hemoglobin 14, hematocrit 43, MCV 92 and platelet count of 160,000. Her chemistry showed a serum sodium of 137, potassium 3.6, chloride 103, bicarbonate 24, anion gap of 10, BUN 5, creatinine 0.9, estimated GFR was 66 mL per minute. Her glucose was 102, calcium was 8.6. Total bilirubin and alkaline phosphatase normal. AST, ALT slightly elevated. Troponin was less than 0.017. C-reactive protein was 48.7. Total protein 7.1, albumin 3.1. Procalcitonin was 0.3. Her prothrombin time, INR and aPTT were elevated. Her SARS coronavirus antigen rapid test was negative. Her chest x-ray showed similar to slightly more conspicuous ____ dominant, ill-defined opacities in the bilateral lungs compatible with viral pneumonitis and remainder of the study otherwise unchanged. She apparently was seen in the Emergency Room on 06/29 and was found to have bilateral hazy infiltrate. PLAN: My plan is to continue with Lovenox and continue with methylprednisolone. I will add Rocephin and Zithromax and we will monitor her closely. ASSESSMENT: 1. Presumed COVID-19 pneumonia. 1. Bilateral pleuritic type chest pain. 2. History of hyperlipidemia. 4. Generalized fatigue. LEONA MAYES MD DR: EBONY/ameena JOB#: [id number] / [id number]
[2020-07-04] MEDS: ZINC SULFATE 220 MG CAPSULE. PO SCH (09:06)
[2020-07-04] MEDS: LACTOBACILLUS RHAMNOSUS GG 1 CAPSULE. PO SCH (09:07)
[2020-07-04 11:00] VITALS: BP 131/74
[2020-07-04] MEDS ORDERED: AZITHROMYCIN 250 MG TABLET. PO SCH (14:00)
[2020-07-04 15:00] VITALS: BP 121/69
[2020-07-04] MEDS: ACETAMINOPHEN/CODEINE 300/30MG TABLET PO PRN (17:21)
[2020-07-04 18:30] VITALS: BP 123/65
[2020-07-04] MEDS: ZOLPIDEM 5 MG TABLET. PO SCH (21:16)
[2020-07-04] MEDS: ENOXAPARIN 40 MG/0.4 ML SYRINGE. SQ SCH (21:16)
[2020-07-04 23:00] VITALS: BP 118/68
[2020-07-05] MEDS: AA 3%/ELECTROLYTE-TPN SOLN/GLY 1,000 ML IV SCH ×2 (05:30→15:55)
[2020-07-05] MEDS: methylPREDNISolone SOD SUCC PF 125 MG/2 ML VIAL. IV SCH (05:33)
[2020-07-05] MEDS: ACETAMINOPHEN/CODEINE 300/30MG TABLET PO PRN (05:34)
[2020-07-05 06:01] LABS: HEMATOCRIT 39.5 % (36.0-47.0); HEMOGLOBIN 13.3 g/dL (12.0-15.5); RED BLOOD COUNT 4.31 x10^6/uL (3.50-5.40); RED CELL DISTRIBUTION WIDTH 12.1 % (11.5-14.5); WHITE BLOOD COUNT 5.6 x10^3/uL (4.0-11.0)
[2020-07-05 06:05] VITALS: BP 123/63
[2020-07-05 06:14] LABS: ALBUMIN 2.6 g/dL (3.4-5.0); ALBUMIN/GLOBULIN RATIO 0.8 (1.0-1.7); C REACTIVE PROTEIN 1.2 mg/L (0-3.3); CALCIUM 8.3 mg/dL (8.5-10.1); CREATININE 0.7 mg/dL (0.6-1.0); GFR 88.6; POTASSIUM 4.2 mmol/L (3.5-5.1); TOTAL BILIRUBIN 0.3 mg/dL (0.2-1.0)
--- NOTE | 2020-07-05 07:50 | RAD ---
CHEST AP ONLY History: Reason: cough and worsening sob / Spl. Instructions: / History: Comparison: July 01, 2020 Findings: Unchanged ill-defined mid and bibasilar opacities. No pleural effusion. No pneumothorax. Normal heart size. Impression: 1. Ill-defined mid and bibasilar opacities, unchanged. Electronically signed by: Rell Currie DO (07/05/2020 7:48 AM) [id number]
[2020-07-05] MEDS: ZINC SULFATE 220 MG CAPSULE. PO SCH (08:07)
[2020-07-05] MEDS: LACTOBACILLUS RHAMNOSUS GG 1 CAPSULE. PO SCH (08:07)
[2020-07-05] MEDS: ONDANSETRON PF 4 MG/2 ML VIAL. IVP PRN (08:19)
[2020-07-05] MEDS: MORPHINE SULFATE 4 MG/ML DISP.SYRIN. IV PRN ×2 (08:20→16:37)
[2020-07-05 11:00] VITALS: BP 126/80
[2020-07-05 15:00] VITALS: BP 121/73
[2020-07-05] MEDS ORDERED: LORazepam 0.5 MG TABLET PO PRN (15:30)
[2020-07-05] MEDS ORDERED: ACETAMINOPHEN/CODEINE 300/30MG TABLET PO PRN (15:30)
[2020-07-05] MEDS ORDERED: ACETAMINOPHEN 325 MG TABLET PO ONE (15:30)
[2020-07-05] MEDS: methylPREDNISolone SOD SUCC PF 40 MG/ML VIAL. IV SCH (16:36)
[2020-07-05] MEDS: DOXYCYCLINE HYCLATE 100 MG TABLET PO SCH (21:34)
[2020-07-05] MEDS: ZOLPIDEM 5 MG TABLET. PO SCH (21:34)
[2020-07-05] MEDS: ENOXAPARIN 40 MG/0.4 ML SYRINGE. SQ SCH (21:35)
[2020-07-05 22:00] VITALS: BP 122/75
[2020-07-06] MEDS: AA 3%/ELECTROLYTE-TPN SOLN/GLY 1,000 ML IV SCH ×2 (02:00→11:08)
[2020-07-06] MEDS: methylPREDNISolone SOD SUCC PF 40 MG/ML VIAL. IV SCH ×2 (06:21→18:57)
--- NOTE | 2020-07-06 06:53 | NUR ---
At 0330, pt called nurse and asked for a second sleeping pill because she woke up and said she cant fall back asleep. Informed pt that she couldnt have a sleeping pill at this time of the morning. V/U stated, but pt seemed irritated. Checked on pt around 4:00 and she was back to sleep.
--- NOTE | 2020-07-06 08:31 | PN ---
DATE: 07/05/2020 SUBJECTIVE: The patient is resting, slightly propped up in bed, in no apparent distress. She is doing generally much better. She continued to have some shortness of breath on exertion. Her cough is mostly dry, some nausea, but no diarrhea, no vomiting. OBJECTIVE: GENERAL: When I examined her, she looked well and was clearly in no apparent respiratory distress. No pallor, jaundice, cyanosis or thyromegaly. No jugular venous distention. No limb edema. VITAL SIGNS: Her heart rate was 65, blood pressure was 126/80, temperature was 98, respiratory rate was 20, and oxygen saturation was 94% on room air. HEAD, EYES, EARS, NOSE, AND THROAT: Showed normocephalic, atraumatic. NECK: Supple. HEART: Showed normal first and second heart sounds. No gallop, rub or murmur. CHEST: Clear to auscultation. No crepitation or rhonchi. ABDOMEN: Distended, soft. NEUROLOGIC: She was awake, alert, responding appropriately. All cranial nerves intact. She moves extremities without difficulty. She ambulates without assistance or assistive devices. Her intake over the last 24 hours was 3600, no output was recorded. LABORATORY DATA: Her lab work this morning showed a white cell count 5600. Her hemoglobin was 13, hematocrit 39, MCV 92, and platelet count 239,000. Her serum sodium was 141, potassium 4.2, chloride 106, bicarbonate 28, anion gap of 7, BUN 17, creatinine 0.7, estimated GFR was 88 mL per minute. Her glucose 124, calcium was 8.3. Total bilirubin, AST, ALT, alkaline phosphatase were all normal. Her C-reactive protein came down from 48.7-1.2. Her total protein 6.8, albumin 2.8. Her chest x-ray showed that there is ill-defined mid and bibasilar opacities that are unchanged. ASSESSMENT: 1. COVID-19 pneumonia. 2. Bilateral pleuritic type chest pain. 3. History of hyperlipidemia. 4. Generalized fatigue. PLAN: To obviously continue with IV Rocephin. Continue with oral Zithromax. Continue with Lovenox and methylprednisone. I will cut down the steroids to 40 mg and evaluate her again tomorrow and hopefully discharge her home. LEONA MAYES MD DR: Cr JOB#: [id number] / [id number]
[2020-07-06] MEDS: ZINC SULFATE 220 MG CAPSULE. PO SCH (09:24)
[2020-07-06] MEDS: DOXYCYCLINE HYCLATE 100 MG TABLET PO SCH (09:24)
[2020-07-06] MEDS: LACTOBACILLUS RHAMNOSUS GG 1 CAPSULE. PO SCH (09:24)
[2020-07-06 11:01] VITALS: BP 120/78
[2020-07-06 11:41] LABS: ALBUMIN 2.6 g/dL (3.4-5.0); ALBUMIN/GLOBULIN RATIO 0.8 (1.0-1.7); CALCIUM 8.3 mg/dL (8.5-10.1); CREATININE 0.8 mg/dL (0.6-1.0); GFR 75.9; POTASSIUM 4.1 mmol/L (3.5-5.1); TOTAL BILIRUBIN 0.5 mg/dL (0.2-1.0); TOTAL PROTEIN 5.8 g/dL (6.4-8.2)
[2020-07-06 15:12] VITALS: BP 117/75
[2020-07-06] MEDS: POTASSIUM CL 20MEQ D5-0.45NACL 1,000 ML IV SCH (17:30)
[2020-07-06 19:48] VITALS: BP 111/65
[2020-07-06] MEDS: ZOLPIDEM 5 MG TABLET. PO SCH (20:46)
[2020-07-06] MEDS: ENOXAPARIN 40 MG/0.4 ML SYRINGE. SQ SCH (20:46)
[2020-07-07] MEDS: POTASSIUM CL 20MEQ D5-0.45NACL 1,000 ML IV SCH ×2 (03:51→15:15)
[2020-07-07 05:34] VITALS: BP 98/65
[2020-07-07] MEDS: methylPREDNISolone SOD SUCC PF 40 MG/ML VIAL. IV SCH (06:17)
--- NOTE | 2020-07-07 06:39 | NUR ---
Pt called at 1999 stating, "I have a sample for you." Pt had urine mixed in with feces; however, the feces was a small formed ball. No specimen for C-diff collected at that time. Pt did not have a bm the rest of the shift. Call light at bedside. Will continue to monitor.
[2020-07-07 07:04] LABS: ALBUMIN 2.6 g/dL (3.4-5.0); ALBUMIN/GLOBULIN RATIO 0.8 (1.0-1.7); CALCIUM 7.9 mg/dL (8.5-10.1); CREATININE 0.7 mg/dL (0.6-1.0); GFR 88.6; POTASSIUM 4.1 mmol/L (3.5-5.1); TOTAL BILIRUBIN 0.5 mg/dL (0.2-1.0); TOTAL PROTEIN 5.8 g/dL (6.4-8.2)
[2020-07-07 07:06] LABS: HEMATOCRIT 42.3 % (36.0-47.0); HEMOGLOBIN 14.1 g/dL (12.0-15.5); RED BLOOD COUNT 4.59 x10^6/uL (3.50-5.40); RED CELL DISTRIBUTION WIDTH 12.1 % (11.5-14.5); WHITE BLOOD COUNT 6.5 x10^3/uL (4.0-11.0)
[2020-07-07] MEDS: ZINC SULFATE 220 MG CAPSULE. PO SCH (09:33)
[2020-07-07] MEDS: LACTOBACILLUS RHAMNOSUS GG 1 CAPSULE. PO SCH (09:33)
[2020-07-07 11:18] VITALS: BP 113/65
--- NOTE | 2020-07-07 13:43 | PN ---
DATE: 07/06/2020 SUBJECTIVE: The patient is sitting slightly propped up in bed, in no apparent distress. She apparently has been having recurrent episodes of loose bowel movement. She has a total of 8 bowel movements up until this afternoon. Denied any nausea or vomiting. Denied any abdominal pain. She has eaten half of her breakfast. So far, she has not eaten her lunch. She continued to maintain her oxygen saturation at 95% on room air. OBJECTIVE: GENERAL: When I examined her, she looked well and was clearly in no apparent respiratory distress. No pallor, jaundice, cyanosis or thyromegaly. No jugular venous distention. No lower limb edema ____. She seemed to be somewhat flushed today. VITAL SIGNS: Her heart rate was 64, blood pressure was 117/75, temperature was 98.3, respiratory rate was 16 and oxygen saturation was 95% on room air. HEAD, EYES, EARS, NOST AND THROAT: Showed normocephalic, atraumatic. NECK: Supple. HEART: Showed normal first and second heart sounds. No gallop, rub or murmur. CHEST: Clear to auscultation. No crepitation or rhonchi. ABDOMEN: Distended, soft, nontender. NEUROLOGIC: She is awake, alert, responding appropriately. All cranial nerves are intact. She moves extremities without difficulty. She ambulates without assistance or assistive devices. Her intake was 3000, no output was recorded. LABORATORY DATA: As of yesterday, white cell count was 5600, hemoglobin 13.3, hematocrit 39.5, MCV 92 and platelet count of 239,000. Her chemistry showed a serum sodium 137, potassium 4.1, chloride 104, bicarbonate 25, anion gap of 8, BUN 16, creatinine 0.8. Estimated GFR was 75 mL per minute. Her glucose was 96, calcium was 8.3. Total bilirubin, AST were normal as well as the alkaline phosphatase. Her ALT is slightly elevated. Her C-reactive protein was 1.2. Total protein was 5.8, albumin was 2.6. ASSESSMENT: 1. COVID-19 pneumonia. 2. Bilateral pleuritic type chest pain. 3. History of hyperlipidemia. 4. Generalized fatigue. 5. Recurrent episodes of loose bowel movement. PLAN: My plan is to discontinue the IV Rocephin. We will start her on D5 half normal with 20 mEq of potassium chloride at 100 mL per hour. We will repeat all her lab works tomorrow and switch her to oral cefdinir as well as doxycycline and dexamethasone. LEONA MAYES MD DR: EBONY/ameena JOB#: [id number] / [id number]
[2020-07-07 15:33] VITALS: BP 117/78
--- NOTE | 2020-07-07 17:00 | NUR ---
DISCHARGE NOTE: PT IS DISCHARGED FROM THE HOSPITAL. REVIEWED DISCHARGE PAPERWORK WITH PATIENT AND PATIENT SIGNED. IV WAS DISCONTINUED AND PT CALLED FOR A RIDE. PT IS GOING HOME WITH PRESCRIPTIONS FROM DR. MAYES OF DEXAMETHASONE, AMBIEN AND VANCOMYCIN. PT WILL NOT TAKE THE VANCO UNTIL HER RESULTS COME BACK FROM THE C-DIFF TEST. PT UNDERSTANDS THESE INSTRUCTIONS AND WILL WAIT TO HEAR FROM THE NURSES. WILL CTM.
--- NOTE | 2020-07-07 20:02 | DS ---
DATE OF DISCHARGE: 07/07/2020 HOSPITAL COURSE: The patient is a 50-year-old female patient who was admitted on 07/02/2020. Her apparently was tested positive for COVID-19 pneumonia. He was treated at home and she tried to quarantine him for the last 7 days prior to admission. She has had cough, congestion, sharp central pleuritic chest pain, aggravated by cough with some nausea and vomiting. She was very weak. She was initially seen in the Emergency Room and given fluid and sent home. She came back and was admitted for inpatient treatment. On admission day, her temperature was 100.9 degrees Fahrenheit. Her chest x-ray showed patchy infiltrate in the periphery, but no overt decompensation with severe respiratory distress as she initially was on 2 liters of oxygen. Subsequently, she remained on room air at 95%. She was treated with IV ceftriaxone as well as Zithromax together with dexamethasone. Unfortunately, she developed diarrhea, for which we sent samples of the stool for C. diff toxin, the results were still pending; however, her diarrhea seemed to have somewhat improved today and the patient expressed her desire to go home and therefore, she will be discharged home to quarantine for another 10 days. PHYSICAL EXAMINATION: GENERAL: On examining her today, she looked well and was clearly in no apparent respiratory distress. No pallor, jaundice or cyanosis. No lymphadenopathy, no thyromegaly. No jugular venous distention. No limb edema. VITAL SIGNS: Her heart rate was 76, blood pressure was 117/78, temperature was 97.2, respiratory rate was 18 and oxygen saturation was 95% on room air. HEAD, EYES, EARS, NOSE AND THROAT: Normocephalic, atraumatic. NECK: Supple. HEART: Normal first and second heart sounds. No gallop, rub or murmur. CHEST: Clear to auscultation. No crepitation or rhonchi. ABDOMEN: Distended, soft, nontender. NEUROLOGICALLY: She is awake, alert, responding appropriately. All cranial nerves intact. EXTREMITIES: She moves extremities without difficulty. She ambulates without assistance or assistive devices. LABORATORY DATA: Her chemistry this morning showed a serum sodium 139, potassium 4.1, chloride 105, bicarbonate 25, anion gap of 9, BUN 11, creatinine 0.7, estimated GFR was 88 mL per minute. Her glucose 120, calcium was 7.9. Total bilirubin, AST, ALT, alkaline phosphatase were normal. Total protein 5.8, albumin was 2.6. Her D-dimer remained stable and within normal range. Her C-reactive protein came down from 48.7 mg per liter down to 1.2 mg/L. DISCHARGE MEDICATIONS: She was discharged home to continue on vitamin D 5000 international unit once a day, famciclovir 250 mg twice a day, gabapentin, Neurontin 200 mg at bedtime, Iodoral 12.5 mg daily as an iodine supplement. She is on lactobacillus rhamnosus 1 capsule daily, loratadine for Claritin 10 mg once a day. She had Nature-Throid 3 grams p.o. daily, omeprazole for Prilosec 20 mg once a day, Prasterone for dehydroepiandrosterone 25 mg, she takes 5 capsules daily and zolpidem tartrate for Ambien 10 mg at bedtime. She will be also discharged on a tapering course of steroids. FINAL DISCHARGE DIAGNOSES: 1. COVID-19 pneumonia. 2. Bilateral pleuritic type chest pain that had resolved. 3. History of hyperlipidemia. 4. Generalized fatigue. 5. Recurrent episodes of loose bowel movement. Stool was sent for C. diff toxin, the result of which is still pending at the time of this dictation. The patient was informed and instructed to call us tomorrow or after tomorrow for the result of this stool for C. toxins. LEONA MAYES MD DR: EBONY/ameena JOB#: [id number] / [id number]
== END 2020-07-07 16:00 | disposition home or self-care (01) | DRG 177 ==
LOC: ER 16:32 → ICU 18:00
PROVIDERS: ADMIT Hospitalist; ATTEND Hospitalist
DX: U07.1 COVID-19 (principal); J12.89 Other viral pneumonia; E03.9 Hypothyroidism, unspecified; E78.5 Hyperlipidemia, unspecified; E86.0 Dehydration; J45.909 Unspecified asthma, uncomplicated; Z80.7 Family history of other malignant neoplasms of lymphoid, hematopoietic and related tissues; Z90.49 Acquired absence of other specified parts of digestive tract; Z90.710 Acquired absence of both cervix and uterus; Z98.82 Breast implant status; Z88.8 Allergy status to other drugs, medicaments and biological substances; Z79.899 Other long term (current) drug therapy
CPT/HCPCS: 36415; 71045; 80053; 84145; 84484; 85025; 85027; 85379; 85610; 85730; 86140; 87426; 87493; 93005; 96372; 96374; 96375; 96376; 99285; J0456; J0696; J1100; J1650; J2270; J2405; J2920; J2930; J3490; J7050; U0003; J7030

== ENCOUNTER → 2020-08-21 | Outpatient (CLI) | payer OTHER ==
[~2020-08-21] MED LIST changes: +CHOL500050 PO; +FAMC250T3 PO; +GABA100C81 PO; +LACT1CAP21 PO; +LORA10TA68 PO; +NATURE THROID PO; +OMEP20TA63 PO; +PRAS25CA PO; +ZOLP10TA PO; +iodoral PO
--- NOTE | 2020-08-21 16:49 | RAD ---
Chest, PA and Lateral: Technique: PA and lateral views of the chest were obtained. History: Cough, pneumonia. Comparison: 07/05/2020. Findings: The cardiomediastinal silhouette grossly appears unremarkable. Mild bibasilar lung airspace opacities likely atelectasis or infiltrates. Mild degenerative changes thoracic spine IMPRESSION: 1. Mild bibasilar lung airspace opacities likely atelectasis or infiltrates or atypical pneumonia. Electronically signed by: Ezekiel Sims MD (08/21/2020 4:47 PM) [id number]
== END ==
LOC: DXRAD 14:25
PROVIDERS: ATTEND Family Medicine
DX: U07.1 COVID-19 (principal)
CPT/HCPCS: 71046

== ENCOUNTER → 2020-09-06 | Outpatient (CLI) | payer OTHER ==
--- NOTE | 2020-09-06 16:04 | RAD ---
AP and Lateral Views of the Chest 09/06/2020 2:17 PM Indication: Reason: COUGH / Spl. Instructions: / History: Comparison: Chest radiograph August 21, 2020 Findings: There is no focal consolidation or infiltrate identified. The cardiomediastinal silhouette is within normal limits. There is no evidence of pneumothorax or pleural effusion. No acute osseous a bnormalities are identified. Impression: No evidence of acute cardiopulmonary process. Electronically signed by: Brian Rendon MD (09/06/2020 4:01 PM) [id number]
== END ==
LOC: RAD 13:24
PROVIDERS: ATTEND Family Medicine
DX: R05 Cough (principal); R07.9 Chest pain, unspecified
CPT/HCPCS: 71046

== ENCOUNTER → 2020-10-08 | Outpatient (CLI) | payer OTHER ==
--- NOTE | 2020-10-08 17:52 | CARD ---
MR#: [id number] Date of Study: 10/08/2020 Ordering Physician: ANAND AMARO, Referring Physician: ANAND AMARO, Tech: Juli Calderon [facility] APPROVED REPORT EXAM: Two-dimensional and M-mode echocardiogram with Doppler and color Doppler. Other Information Quality : Good INDICATION Dyspnea Post Covid 2D DIMENSIONS RVDd3.0 (2.9-3.5cm)Left Atrium(2D)3.7 (1.6-4.0cm) IVSd0.9 (0.7-1.1cm)Aortic Root(2D)3.3 (2.0-3.7cm) LVDd4.4 (3.9-5.9cm)LVOT Diameter2.0 (1.8-2.4cm) PWd1.0 (0.7-1.1cm)LVDs3.1 (2.5-4.0cm) FS (%) 29.9 %SV50.0 ml LVEF(%)57.3 (>50%) Aortic Valve AoV Peak Corwin.119.2cm/sAoV VTI21.9cm AO Peak GR.5.7mmHgLVOT Peak Corwin.103.9cm/s LVOT VTI 18.74cmAO Mean GR.3mmHg KENNY (VMAX)2.71no6TRA (VTI)2.74cm2 Mitral Valve MV E Xjutwwrg07.8cm/sMV DECEL [id number] MV A Uxtoiiqt33.7cm/sE/A Ratio0.8 Tricuspid Valve TR P. Lrsvxdsk357gb/sRAP XYFZYZTC0yrXc TR Peak Gr.88ogAuIZFR08iuUk Pulmonary Vein S1 Lwegmkle12.1cm/sD2 Dlizliny24.2cm/s LEFT VENTRICLE The left ventricle is normal size. There is normal left ventricular wall thickness. The left ventricu lar systolic function is normal and the ejection fraction is within normal range. The Ejection Fracti on is 55-60%. There is normal LV segmental wall motion. Transmitral Doppler flow pattern is Grade I-a bnormal relaxation pattern. RIGHT VENTRICLE The right ventricle is normal size. The right ventricular systolic function is normal. ATRIA The left atrium size is normal. The right atrium size is normal. The interatrial septum is intact wit h no evidence for an atrial septal defect or patent foramen ovale as noted on 2-D or Doppler imaging. AORTIC VALVE The aortic valve is calcified but opens well. Doppler and Color Flow revealed no significant aortic r egurgitation. There is no significant aortic valvular stenosis. MITRAL VALVE The mitral valve is normal in structure and function. Mitral annular calcification is mild. There is no evidence of mitral valve prolapse. There is no mitral valve stenosis. Doppler and Color-flow revea led trace mitral regurgitation. TRICUSPID VALVE The tricuspid valve is normal in structure and function. Doppler and Color Flow revealed trace tricus pid regurgitation. The PA pressure was estimated at 29 mmHg. There is no tricuspid valve stenosis. PULMONIC VALVE The pulmonic valve is not well visualized. Doppler and Color Flow revealed mild pulmonic valvular reg urgitation. There is no pulmonic valvular stenosis. GREAT VESSELS The aortic root is normal in size. The ascending aorta is normal in size. The IVC is normal in size a nd collapses >50% with inspiration. PERICARDIAL EFFUSION There is no evidence of significant pericardial effusion. Critical Notification Critical Value: No <Conclusion> The left ventricle is normal size. The left ventricular systolic function is normal and the ejection fraction is within normal range. The Ejection Fraction is 55-60%. Doppler and Color Flow revealed no significant aortic regurgitation. There is no significant aortic valvular stenosis. Doppler and Color-flow revealed trace mitral regurgitation. Doppler and Color Flow revealed trace tricuspid regurgitation. The PA pressure was estimated at 29 mmHg. Signed by : Vipul Clay MD Electronically Approved : 10/08/2020 17:51:52
== END ==
LOC: ECHO 07:56
PROVIDERS: ATTEND Internal Medicine Cardiovascular Disease
DX: I08.8 Other rheumatic multiple valve diseases (principal)
CPT/HCPCS: 93306

== ENCOUNTER → 2020-10-28 | Outpatient (CLI) | payer OTHER ==
[~2020-10-28] MED LIST changes: +IOHEXOL 350 MG/ML 100 ML VIAL. IV ONE
--- NOTE | 2020-10-28 16:53 | RAD ---
EXAM: CT Pulmonary Angiogram INDICATION: Reason: CHEST PAIN, DYSPNEA, POST COVID IN JULY. 100MLS OMNI 350 / Spl. Instructions: / History: TECHNIQUE: Multi-detector row images were acquired from the thoracic inlet through the upper abdomen with the use of IV contrast. Sagittal and coronal images were acquired from the transaxial data. AL P images of the pulmonary arteries were obtained. All CT scans performed at this facility utilize dos e optimization techniques as appropriate to the exam, including the following: Automated exposure con trol and adjustment of the mA and/or KV according to patient size (this includes techniques or standa rdized protocols for targeted exams where dose is indication/reason for exam). IV CONTRAST: Administered COMPARISON: None FINDINGS: PULMONARY ARTERIES: No pulmonary emboli are identified. CARDIOVASCULAR: Unremarkable Aorta is normal caliber. MEDIASTINUM & LUIS: No adenopathy or masses. LUNGS: No pulmonary infiltrate, nodule, or other focal abnormality. PLEURAL SPACE: No pleural effusions or pneumothorax. OSSEOUS & SOFT TISSUE: Bilateral breast implants ABDOMEN: The visualized portions of the upper abdomen show postcholecystectomy surgical changes.. IMPRESSION: No evidence of pulmonary emboli. No acute cardiopulmonary process. Electronically signed by: Meghann Salgado MD (10/28/2020 4:51 PM) [id number]
== END ==
LOC: CT 09:20
PROVIDERS: ATTEND Internal Medicine Critical Care Medicine
DX: R06.00 Dyspnea, unspecified (principal); R07.9 Chest pain, unspecified; Z86.16 Personal history of COVID-19; Z90.49 Acquired absence of other specified parts of digestive tract
CPT/HCPCS: 71275; Q9967

== ENCOUNTER 2021-04-30 19:34 | Emergency (ER) | payer OTHER ==
[~2021-04-30] VITALS: Ht 170.2 cm; Wt 81.0 kg
[~2021-04-30 19:34] MED LIST changes: -IOHEXOL 350 MG/ML 100 ML VIAL. IV ONE
[2021-04-30] MEDS ORDERED: CEPH500C PO (19:58)
--- NOTE | 2021-04-30 19:58 | PHYS DOC ---
Past History Past Medical History: Asthma, Hypothyroid Additional Past Medical Histor: insomnia, herniated disc at L5/S1 Past Surgical History: Cholecystectomy, Hysterectomy Additional Past Surgical Histo: breast implants Alcohol Use: None General Adult EDM: Chief Complaint: LOWER EXT PAIN HPI: HPI: Patient is a [age] year old [sex] who presents with [] Review of Systems: Review of Systems: Constitutional: Denies fever or chills Eyes: Denies change in visual acuity HENT: Denies nasal congestion or sore throat Respiratory: Denies cough or shortness of breath Cardiovascular: Denies chest pain or edema GI: Denies abdominal pain, nausea, vomiting, bloody stools or diarrhea : Denies dysuria Musculoskeletal: Denies back pain or joint pain Integument: Denies rash Neurologic: Denies headache, focal weakness or sensory changes Endocrine: Denies polyuria or polydipsia Lymphatic: Denies swollen glands Psychiatric: Denies depression or anxiety Allergies: Allergies: Allergies Coded Allergies Type Severity Reaction Last Updated Verified naproxen Allergy Unknown 07/01/20 Yes povidone-iodine Allergy Unknown 07/01/20 Yes soap Allergy Unknown 07/01/20 Yes Physical Exam: PE: Constitutional: Well developed, well nourished, no acute distress, non-toxic appearance. [] HENT: Normocephalic, atraumatic, bilateral external ears normal, oropharynx moist, no oral exudates, nose normal. [] Eyes: PERRLA, EOMI, conjunctiva normal, no discharge. [] Neck: Normal range of motion, no tenderness, supple, no stridor. [] Cardiovascular:Heart rate regular rhythm, no murmur [] Lungs & Thorax: Bilateral breath sounds clear to auscultation [] Abdomen: Bowel sounds normal, soft, no tenderness, no masses, no pulsatile masses. [] Skin: Warm, dry, no erythema, no rash. [] Back: No tenderness, no CVA tenderness. [] Extremities: No tenderness, no cyanosis, no clubbing, ROM intact, no edema. [] Neurologic: Alert and oriented X 3, normal motor function, normal sensory function, no focal deficits noted. [] Psychologic: Affect normal, judgement normal, mood normal. [] EKG: EKG: [] Radiology/Procedures: Radiology/Procedures: [] Heart Score: Risk Factors: Risk Factors: DM, Current or recent (<one month) smoker, HTN, HLP, family history of CAD, obesity. Risk Scores: Score 0 - 3: 2.5% MACE over next 6 weeks - Discharge Home Score 4 - 6: 20.3% MACE over next 6 weeks - Admit for Clinical Observation Score 7 - 10: 72.7% MACE over next 6 weeks - Early Invasive Strategies Course & Med Decision Making: Course & Med Decision Making Pertinent Labs and Imaging studies reviewed. (See chart for details) [] Dragon Disclaimer: Dragon Disclaimer: This electronic medical record was generated, in whole or in part, using a voice recognition dictation system. Departure Departure: Impression: Primary Impression: Phlebitis and thrombophlebitis of superficial vessels of left lower extremity Disposition: HOME / SELF CARE / HOMELESS Condition: STABLE Referrals: RADAMES CENTENO MD (PCP) Patient Instructions: Phlebitis, [id number] Additional Instructions: May use over the counter Ibuprofen and/or Tylenol for pain or discomfort. Take antibiotic to completion as prescribed. Follow closely with your doctor that performed the procedure for further evaluation and treatment. Scripts Cephalexin (KEFLEX) 500 Mg Capsule 1 CAP PO QID for Thrombophlebitis for 7 Days, #28 CAP Prov: JOSÉ LUIS GLOVER DO 04/30/21 JOSÉ LUIS GLOVER DO Apr 30, 2021 19:58
[2021-04-30] MEDS ORDERED: LIDOCAINE 2% 20 ML VIAL. ONE (20:00)
[2021-04-30 20:13] VITALS: BP 105/74
[2021-04-30] MEDS: CEPHALEXIN 250 MG CAPSULE PO ONE (20:16)
== END 2021-04-30 20:16 | disposition home or self-care (01) ==
LOC: ER 19:34
DX: I80.02 Phlebitis and thrombophlebitis of superficial vessels of left lower extremity (principal); J45.909 Unspecified asthma, uncomplicated; E03.9 Hypothyroidism, unspecified; Z88.8 Allergy status to other drugs, medicaments and biological substances
CPT/HCPCS: 99283